=== PATIENT | female | born 1995 | race Caucasian/White ===

== ENCOUNTER 2016-07-18 14:53 | Emergency (ER) | payer SELFPAY ==
[~2016-07-18] VITALS: Ht 160 cm; Wt 63.6 kg
[2016-07-18 14:57] VITALS: BP 125/74; TEMP 97.2
[2016-07-18] MEDS ORDERED: PEPCID 20MG TAB20 MG PO (16:05)
[2016-07-18] MEDS ORDERED: PREDNISONE10 MG PO (16:05)
[2016-07-18 16:34] VITALS: PULSE 108
== END 2016-07-18 16:34 | disposition home or self-care (01) ==
LOC: COL.ER 14:53
DX: L50.9 Urticaria, unspecified (principal)
CPT/HCPCS: J0171; J1200; J2930

== ENCOUNTER 2016-11-04 18:45 | Emergency (ER) | payer SELFPAY ==
[~2016-11-04] VITALS: Ht 162.6 cm; Wt 65.9 kg
[~2016-11-04 18:45] MED LIST: PEPCID 20MG TAB20 MG PO; PREDNISONE10 MG PO
[2016-11-04 18:48] VITALS: BP 117/67; TEMP 98.8
[2016-11-04] MEDS ORDERED: DEPO-PROVER150 MG/M1 IM (18:51)
[2016-11-04] MEDS ORDERED: SEPTRA DS 8001 TAB PO ×2 (19:40)
[2016-11-04 19:57] VITALS: PULSE 68
== END 2016-11-04 19:59 | disposition home or self-care (01) ==
LOC: COL.ER 18:45
DX: R21 Rash and other nonspecific skin eruption (principal); Z86.14 Personal history of Methicillin resistant Staphylococcus aureus infection

== ENCOUNTER 2018-01-25 11:00 | Emergency (ER) | payer BC ==
[~2018-01-25] VITALS: Ht 162.6 cm; Wt 65.9 kg
[~2018-01-25 11:00] MED LIST changes: +BACTRIM DS 8001 TAB PO; +DEPO-PROVER150 MG/M1 IM; +SEPTRA DS 8001 TAB PO
[2018-01-25 11:05] VITALS: TEMP 98.7
[2018-01-25 12:07] LABS: MUCOUS Present /lpf; PH 7 (5-8); SQUAMOUS EPITHELIAL 0-2 /hpf; URINE APPEARANCE Clear; URINE BACTERIA Rare /hpf; URINE BILIRUBIN Negative (NEGATIVE); URINE BLOOD Negative (NEGATIVE); URINE COLOR Yellow; URINE GLUCOSE Negative (NEGATIVE); URINE KETONE Negative (NEGATIVE); URINE LEUKOCYTE ESTERASE Trace (NEGATIVE); URINE NITRATE Positive (NEGATIVE); URINE PROTEIN(semi-quant) Negative (NEGATIVE); URINE RBC 0-2 /hpf; URINE UROBILINOGEN Negative (NEGATIVE); URINE WBC 0-2 /hpf
[2018-01-25 12:13] LABS: COLLECTION METHOD CLEAN CATCH
[2018-01-25] MEDS ORDERED: CEPHALEXIN500 M1 PO (12:33)
[2018-01-25] MEDS ORDERED: FLAGYL500 MG PO (12:33)
[2018-01-25 13:00] VITALS: BP 121/71; PULSE 75
== END 2018-01-25 13:00 | disposition other institution (70) ==
LOC: COL.ER 11:00
PROVIDERS: Emergency Medicine
DX: N76.0 Acute vaginitis (principal); N39.0 Urinary tract infection, site not specified

== ENCOUNTER 2018-07-09 22:28 | Emergency (ER) | payer SELFPAY | END 2018-07-09 23:17 | disposition home or self-care (01) | LOC: COL.ER 22:28 | DX: T78.40XA Allergy, unspecified, initial encounter (principal) ==

== ENCOUNTER → 2020-02-04 | Emergency (ER) | payer SELFPAY ==
[~2020-02-04] VITALS: Ht 162.6 cm; Wt 75.0 kg
[~2020-02-04] MED LIST changes: +CEPHALEXIN500 M1 PO; +FLAGYL500 MG PO; +PREDNISONE20 MG PO; +TESSALON PERLE200 MG PO
[2020-02-04 03:27] VITALS: TEMP 97.7
[2020-02-04 05:49] VITALS: BP 119/74; PULSE 75
== END ==
LOC: COL.ER 03:20
DX: J20.9 Acute bronchitis, unspecified (principal)
CPT/HCPCS: J7512

== ENCOUNTER 2020-02-24 01:46 | Emergency (ER) | payer SELFPAY ==
[~2020-02-24] VITALS: Ht 162.6 cm; Wt 72.7 kg
[2020-02-24 02:11] VITALS: BP 117/72; PULSE 67; TEMP 97.4
[2020-02-24] MEDS ORDERED: MEDROL 4MG DOSPA4 MG PO ×2 (02:33→02:49)
[2020-02-24] MEDS ORDERED: SINGULAIR 110 MG/TAB PO ×2 (02:33→02:49)
[2020-02-24] MEDS ORDERED: ZITHROMAX Z PA250 MG PO ×2 (02:33→02:49)
[2020-02-24] MEDS ORDERED: PROAIR HFA0.09 MG/AC IH (02:43)
== END 2020-02-24 02:52 | disposition home or self-care (01) ==
LOC: COL.ER 01:46
DX: J45.901 Unspecified asthma with (acute) exacerbation (principal); J06.9 Acute upper respiratory infection, unspecified

== ENCOUNTER → 2020-05-12 | Emergency (ER) | payer SELFPAY ==
[~2020-05-12] MED LIST changes: +MEDROL 4MG DOSPA4 MG PO; +PROAIR HFA0.09 MG/AC IH; +SINGULAIR 110 MG/TAB PO; +ZITHROMAX Z PA250 MG PO
== END ==
LOC: COL.ER 15:57
DX: Z00.00 Encounter for general adult medical examination without abnormal findings (principal)